=== PATIENT | male | born 1935 | race Two or more races ===

== ENCOUNTER 2019-02-13 12:59 | Inpatient (IN) | payer MEDICARE ==
[~2019-02-13] VITALS: Ht 167.6 cm; Wt 83.9 kg
[~2019-02-13 12:59] MED LIST: APIX5TAB PO; ATOR10TA PO; BISA10SU8 RC; DILT-8 PO; DONE10TA11 PO; ESOM40CA PO; LACT1CAP57 PO; LEVO500T2 PO; LIDO30AD10 TD; LISI10TA5 PO; LORA0.5T PO; MAGN400O6 PO; MEMA10TA PO; MEMA1CAP2 PO; NA P133E RC; NAPR-1009 PO; PANT40TA2 PO; PARO20TA7 PO; PAXIL PO; QUET100T PO; ROSU5TAB PO
[2019-02-13] MEDS ORDERED: CHOL10002 PO (13:26)
[2019-02-13 13:43] LABS: BASOPHILS % (AUTO) 0.7 % (0.0-2.0); EOSINOPHILS # (AUTO) 0.6 K/uL (0.0-0.7); EOSINOPHILS % (AUTO) 8.8 % (0.0-7.0); HEMATOCRIT 45.8 % (36.7-47.1); HEMOGLOBIN 15.3 g/dL (12.5-16.3); LYMPHOCYTES # (AUTO) 1.5 K/uL (20.0-40.0); LYMPHOCYTES % (AUTO) 24.2 % (20.5-51.5); MEAN CORPUSCULAR HEMOGLOBIN 30.9 uug (23.8-33.4); MEAN CORPUSCULAR HGB CONC 34 g/dL (32.5-36.3); MEAN CORPUSCULAR VOLUME 92.3 fL (73.0-96.2); MONOCYTES # (AUTO) 0.5 K/uL (2.0-10.0); MONOCYTES % (AUTO) 8.1 % (0.0-11.0); NEUTROPHILS # (AUTO) 3.7 K/uL (1.8-8.9); NEUTROPHILS % (AUTO) 58.2 % (38.5-71.5); PLATELET COUNT (AUTO) 142 K/uL (152-348); RED BLOOD CELL COUNT(AUTO) 4.97 MIL/uL (4.06-5.63); WHITE BLOOD COUNT (AUTO) 6.3 K/uL (3.6-10.2)
[2019-02-13 13:49] LABS: *BILIRUBIN,URIN NEGATIVE (NEGATIVE); *CLARITY,URINE CLEAR (CLEAR); *COLOR,URINE YELLOW (YELLOW); *KETONES,URINE NEGATIVE (NEGATIVE); *UROBILINOGEN,URINE 0.2 E.U./dl (NORMAL); LEUKOCYTE ESTERASE ,URINE 1+ (NEGATIVE); NITRITE, URINE POSITIVE (NEGATIVE); PH,URINE 5.5 (5.0-8.0); UGLUCOSE NEGATIVE (NEGATIVE)
[2019-02-13 13:50] LABS: *BLOOD, URINE TRACE (NEGATIVE)
[2019-02-13 13:51] LABS: CARBON DIOXIDE 25 mmol/L (21-32); CHLORIDE 106 mmol/L (98-107); CREATININE 1.1 mg/dL (0.6-1.3); GLUCOSE 138 mg/dL (74-106); POTASSIUM 4.4 mmol/L (3.5-5.1); UREA NITROGEN, BLOOD 20 mg/dL (7-18)
[2019-02-13 13:58] LABS: BACTERIA,URINE MODERATE /HPF (NONE SEEN); RBC,URINE 0-3 /HPF (0-3); SQUAMOUS EPITHELIAL CELL,UR FEW /HPF (NONE SEEN)
[2019-02-13 14:03] LABS: ALANINE AMINOTRANSFERASE 19 U/L (16-63); ALKALINE PHOSPHATASE 92 U/L (50-136); ASPARTATE AMINOTRANSFERASE 13 U/L (15-37); BILIRUBIN,DIRECT 0.1 mg/dL (0.0-0.2); BILIRUBIN,TOTAL 0.4 mg/dL (0.2-1.0); TOTAL PROTEIN, SERUM 6.9 g/dL (6.4-8.2)
[2019-02-13 17:23] VITALS: BP 157/87
[2019-02-13 19:31] VITALS: BP 153/91
[2019-02-13] MEDS ORDERED: NAPROXEN 500 MG TABLET PO PRN (20:00)
[2019-02-13] MEDS ORDERED: FLEET ENEMA 133 ML BOTTLE RC PRN (20:00)
[2019-02-13] MEDS ORDERED: MAGNESIUM HYDROXIDE 30 ML LIQUID UDC PO PRN (20:00)
[2019-02-13] MEDS ORDERED: MORPHINE SULFATE 2 MG/1 ML DISP.SYRIN IV PRN (20:00)
[2019-02-13] MEDS ORDERED: ACETAMINOPHEN 325 MG TABLET PO PRN (20:00)
[2019-02-13] MEDS ORDERED: BISACODYL 10 MG SUPP.RECT RC PRN (20:00)
[2019-02-13] MEDS: CEFTRIAXONE 1 G in IV DEXTROSE 5% 50 ML IV SCH (21:30)
[2019-02-13] MEDS: CULTURELLE CAPSULE PO SCH (21:31)
[2019-02-13] MEDS: ATORVASTATIN 10 MG TABLET PO SCH (21:31)
[2019-02-13] MEDS: QUETIAPINE FUMARATE 100 MG TABLET PO SCH (21:31)
[2019-02-13 23:44] VITALS: BP 118/76
[2019-02-14 03:28] VITALS: BP 126/78
[2019-02-14] MEDS: PANTOPRAZOLE SODIUM 40 MG TABLET.DR PO SCH (05:59)
[2019-02-14 06:46] LABS: THYROID STIMULATING HORMONE 0.238 mIU/mL (0.358-3.740)
[2019-02-14 07:02] LABS: ALANINE AMINOTRANSFERASE 20 U/L (16-63); ALKALINE PHOSPHATASE 89 U/L (50-136); ASPARTATE AMINOTRANSFERASE 13 U/L (15-37); BILIRUBIN,TOTAL 0.5 mg/dL (0.2-1.0); CARBON DIOXIDE 24 mmol/L (21-32); CHLORIDE 106 mmol/L (98-107); CHOLESTEROL 111 mg/dL (<200); CREATININE 1.1 mg/dL (0.6-1.3); GLUCOSE 86 mg/dL (74-106); HDL CHOLESTEROL 30 mg/dL (40-60); POTASSIUM 4.1 mmol/L (3.5-5.1); TRIGLYCERIDES 125 MG/DL (30-150); UREA NITROGEN, BLOOD 21 mg/dL (7-18)
[2019-02-14 07:03] LABS: EOSINOPHILS # (AUTO) 0.5 K/uL (0.0-0.7); LYMPHOCYTES # (AUTO) 1.5 K/uL (20.0-40.0)
[2019-02-14 07:15] LABS: BASOPHILS # (AUTO) 0.1 K/uL (0.0-8.0); BASOPHILS % (AUTO) 0.8 % (0.0-2.0); EOSINOPHILS % (AUTO) 5.8 % (0.0-7.0); HEMATOCRIT 46.2 % (36.7-47.1); HEMOGLOBIN 15.4 g/dL (12.5-16.3); LYMPHOCYTES % (AUTO) 18.2 % (20.5-51.5); MEAN CORPUSCULAR HEMOGLOBIN 30.9 uug (23.8-33.4); MEAN CORPUSCULAR HGB CONC 33 g/dL (32.5-36.3); MEAN CORPUSCULAR VOLUME 92.4 fL (73.0-96.2); MONOCYTES # (AUTO) 0.8 K/uL (2.0-10.0); MONOCYTES % (AUTO) 9.8 % (0.0-11.0); NEUTROPHILS # (AUTO) 5.3 K/uL (1.8-8.9); NEUTROPHILS % (AUTO) 65.4 % (38.5-71.5); PLATELET COUNT (AUTO) 146 K/uL (152-348)
[2019-02-14 07:18] LABS: WHITE BLOOD COUNT (AUTO) 8.1 K/uL (3.6-10.2)
[2019-02-14] MEDS: LORAZEPAM 0.5 MG TABLET PO SCH ×2 (08:42→16:33)
[2019-02-14] MEDS: CHOLECALCIFEROL 1,000 UNIT TABLET PO SCH (08:42)
[2019-02-14] MEDS: FUROSEMIDE 20 MG/2 ML VIAL IV SCH (08:42)
[2019-02-14] MEDS: DILTIAZEM HCL CD 120 MG CAP.SR.24H PO SCH (08:44)
[2019-02-14] MEDS: LISINOPRIL 10 MG TABLET PO SCH (08:44)
[2019-02-14] MEDS: CULTURELLE CAPSULE PO SCH ×2 (08:44→21:05)
[2019-02-14] MEDS: PAROXETINE HCL 20 MG TABLET PO SCH (08:44)
[2019-02-14] MEDS: APIXABAN 5 MG TABLET PO SCH ×2 (08:47→17:25)
[2019-02-14] MEDS ORDERED: Medication Not On Formulary EA (Memantine HCl/Donepezil HCl (Namzaric 14 mg-10 mg Capsul PO SCH (09:00)
[2019-02-14 11:40] VITALS: BP 109/82
[2019-02-14 15:26] VITALS: BP 103/63
[2019-02-14 19:58] VITALS: BP 107/65
[2019-02-14] MEDS: ATORVASTATIN 10 MG TABLET PO SCH (21:05)
[2019-02-14] MEDS: CEFTRIAXONE 1 G in IV DEXTROSE 5% 50 ML IV SCH (21:05)
[2019-02-14] MEDS: MEMANTINE HCL 10 MG TABLET PO SCH (21:06)
[2019-02-14] MEDS: DONEPEZIL 10 MG TABLET PO SCH (21:06)
[2019-02-14] MEDS: QUETIAPINE FUMARATE 100 MG TABLET PO SCH (21:06)
[2019-02-15 01:17] VITALS: BP 94/62
[2019-02-15 05:06] VITALS: BP 103/50
[2019-02-15 05:57] LABS: BASOPHILS % (AUTO) 0.7 % (0.0-2.0); EOSINOPHILS # (AUTO) 0.4 K/uL (0.0-0.7); EOSINOPHILS % (AUTO) 5.3 % (0.0-7.0); HEMATOCRIT 45.1 % (36.7-47.1); HEMOGLOBIN 15.3 g/dL (12.5-16.3); LYMPHOCYTES # (AUTO) 1.9 K/uL (20.0-40.0); MEAN CORPUSCULAR HEMOGLOBIN 31.4 uug (23.8-33.4); MEAN CORPUSCULAR HGB CONC 34 g/dL (32.5-36.3); MEAN CORPUSCULAR VOLUME 92.3 fL (73.0-96.2); MONOCYTES # (AUTO) 0.6 K/uL (2.0-10.0); MONOCYTES % (AUTO) 8.1 % (0.0-11.0); NEUTROPHILS # (AUTO) 4.1 K/uL (1.8-8.9); NEUTROPHILS % (AUTO) 58.9 % (38.5-71.5); PLATELET COUNT (AUTO) 142 K/uL (152-348); RED BLOOD CELL COUNT(AUTO) 4.88 MIL/uL (4.06-5.63)
[2019-02-15 06:12] LABS: ALANINE AMINOTRANSFERASE 19 U/L (16-63); ALKALINE PHOSPHATASE 90 U/L (50-136); ASPARTATE AMINOTRANSFERASE 12 U/L (15-37); BILIRUBIN,TOTAL 0.5 mg/dL (0.2-1.0); CARBON DIOXIDE 28 mmol/L (21-32); CHLORIDE 103 mmol/L (98-107); CREATININE 1.4 mg/dL (0.6-1.3); GLUCOSE 105 mg/dL (74-106); MAGNESIUM 2.1 mg/dL (1.8-2.4); PHOSPHOROUS 3.2 mg/dL (2.5-4.9); POTASSIUM 3.9 mmol/L (3.5-5.1); TOTAL PROTEIN, SERUM 6.6 g/dL (6.4-8.2); UREA NITROGEN, BLOOD 25 mg/dL (7-18)
[2019-02-15] MEDS: PANTOPRAZOLE SODIUM 40 MG TABLET.DR PO SCH (06:41)
[2019-02-15] MEDS: PAROXETINE HCL 20 MG TABLET PO SCH (08:40)
[2019-02-15] MEDS: LORAZEPAM 0.5 MG TABLET PO SCH ×2 (08:41→16:48)
[2019-02-15] MEDS: CHOLECALCIFEROL 1,000 UNIT TABLET PO SCH (08:41)
[2019-02-15] MEDS: DONEPEZIL 10 MG TABLET PO SCH ×2 (08:41→21:14)
[2019-02-15] MEDS: MEMANTINE HCL 10 MG TABLET PO SCH ×2 (08:41→20:54)
[2019-02-15] MEDS: CULTURELLE CAPSULE PO SCH ×2 (08:41→20:55)
[2019-02-15] MEDS: APIXABAN 5 MG TABLET PO SCH ×2 (08:43→16:49)
[2019-02-15] MEDS: DILTIAZEM HCL CD 120 MG CAP.SR.24H PO SCH (08:44)
[2019-02-15] MEDS: LISINOPRIL 10 MG TABLET PO SCH (08:45)
[2019-02-15] MEDS: FUROSEMIDE 20 MG/2 ML VIAL IV SCH (08:45)
[2019-02-15 12:17] VITALS: BP 121/69
[2019-02-15 15:20] VITALS: BP 100/62
[2019-02-15] MEDS: CEphaleXIN 500 MG CAPSULE PO SCH ×2 (16:54→20:55)
[2019-02-15 20:27] VITALS: BP 116/69
[2019-02-15] MEDS: QUETIAPINE FUMARATE 100 MG TABLET PO SCH (20:55)
[2019-02-15] MEDS: ATORVASTATIN 10 MG TABLET PO SCH (20:55)
[2019-02-16 05:06] VITALS: BP 107/58
[2019-02-16] MEDS: PANTOPRAZOLE SODIUM 40 MG TABLET.DR PO SCH (06:09)
[2019-02-16 06:55] LABS: BASOPHILS % (AUTO) 0.3 % (0.0-2.0); EOSINOPHILS # (AUTO) 0.4 K/uL (0.0-0.7); EOSINOPHILS % (AUTO) 5.5 % (0.0-7.0); HEMATOCRIT 44.8 % (36.7-47.1); MEAN CORPUSCULAR HEMOGLOBIN 31.1 uug (23.8-33.4); MEAN CORPUSCULAR HGB CONC 33 g/dL (32.5-36.3); MEAN CORPUSCULAR VOLUME 93.1 fL (73.0-96.2); MONOCYTES # (AUTO) 0.5 K/uL (2.0-10.0); MONOCYTES % (AUTO) 7.3 % (0.0-11.0); NEUTROPHILS # (AUTO) 4.5 K/uL (1.8-8.9); NEUTROPHILS % (AUTO) 59.9 % (38.5-71.5); PLATELET COUNT (AUTO) 139 K/uL (152-348); RED BLOOD CELL COUNT(AUTO) 4.82 MIL/uL (4.06-5.63); WHITE BLOOD COUNT (AUTO) 7.5 K/uL (3.6-10.2)
[2019-02-16 07:02] LABS: CARBON DIOXIDE 28 mmol/L (21-32); CHLORIDE 104 mmol/L (98-107); CREATININE 1.3 mg/dL (0.6-1.3); GLUCOSE 92 mg/dL (74-106); PHOSPHOROUS 2.6 mg/dL (2.5-4.9); POTASSIUM 4.1 mmol/L (3.5-5.1); UREA NITROGEN, BLOOD 26 mg/dL (7-18)
[2019-02-16 08:00] VITALS: BP 122/72
[2019-02-16] MEDS: CEphaleXIN 500 MG CAPSULE PO SCH (09:54)
[2019-02-16] MEDS: CHOLECALCIFEROL 1,000 UNIT TABLET PO SCH (09:54)
[2019-02-16] MEDS: MEMANTINE HCL 10 MG TABLET PO SCH (09:54)
[2019-02-16] MEDS: LISINOPRIL 10 MG TABLET PO SCH (09:54)
[2019-02-16] MEDS: DONEPEZIL 10 MG TABLET PO SCH (09:54)
[2019-02-16] MEDS: PAROXETINE HCL 20 MG TABLET PO SCH (09:54)
[2019-02-16] MEDS: LORAZEPAM 0.5 MG TABLET PO SCH (09:54)
[2019-02-16] MEDS: CULTURELLE CAPSULE PO SCH (09:54)
[2019-02-16] MEDS: DILTIAZEM HCL CD 120 MG CAP.SR.24H PO SCH (09:56)
[2019-02-16] MEDS: APIXABAN 5 MG TABLET PO SCH (09:59)
[2019-02-16] MEDS: FUROSEMIDE 20 MG/2 ML VIAL IV SCH (09:59)
[2019-02-16 11:14] VITALS: BP 142/78
[2019-02-16] MEDS ORDERED: CEPH500C2 PO (12:23)
[2019-02-16] MEDS ORDERED: ACET325T53 PO (12:23)
[2019-02-16 18:09] VITALS: BP 117/63
== END 2019-02-16 17:30 | DRG 871 ==
LOC: ER 12:59 → TELE3 16:25 → MEDSURG3 02-15 14:34
PROVIDERS: ADMIT Internal Medicine; ATTEND Internal Medicine
DX: A41.9 Sepsis, unspecified organism (principal); N17.0 Acute kidney failure with tubular necrosis; N39.0 Urinary tract infection, site not specified; E87.2 Acidosis; D68.59 Other primary thrombophilia; G93.40 Encephalopathy, unspecified; B96.1 Klebsiella pneumoniae [K. pneumoniae] as the cause of diseases classified elsewhere; E05.10 Thyrotoxicosis with toxic single thyroid nodule without thyrotoxic crisis or storm; D69.6 Thrombocytopenia, unspecified; F01.50 Vascular dementia, unspecified severity, without behavioral disturbance, psychotic disturbance, mood disturbance, and anxiety; I11.9 Hypertensive heart disease without heart failure; I48.2 Chronic atrial fibrillation; I25.2 Old myocardial infarction; I35.1 Nonrheumatic aortic (valve) insufficiency; F41.9 Anxiety disorder, unspecified; E78.5 Hyperlipidemia, unspecified; Z74.09 Other reduced mobility; Z79.899 Other long term (current) drug therapy; Z87.891 Personal history of nicotine dependence; Z79.01 Long term (current) use of anticoagulants; R62.7 Adult failure to thrive; K21.9 Gastro-esophageal reflux disease without esophagitis
CPT/HCPCS: 36415; 70030-TC; 71045; 83605; 83735; 84100; 84153; 84443; 85025; 85730; 87040; 87077; 87086; 93005; 93307; A4663; G0378; J0696; J1940; J3490; J7060

== ENCOUNTER 2020-01-20 17:28 | Inpatient (IN) | payer MEDICARE ==
[~2020-01-20] VITALS: Ht 167.6 cm; Wt 90.7 kg
[~2020-01-20 17:28] MED LIST changes: +ACET325T53 PO; -ATOR10TA PO; +BISA10SU11 RC; -BISA10SU8 RC; +CEPH500C2 PO; +CHOL10002 PO; +DILT-2 PO; -DILT-8 PO; -DONE10TA11 PO; -ESOM40CA PO; -LEVO500T2 PO; -LIDO30AD10 TD; -MEMA10TA PO; -NAPR-1009 PO; -PAXIL PO; -ROSU5TAB PO
--- NOTE | 2020-01-20 17:28 | NUR ---
pt bib private ambulance from [facility], to be evaluated for fever, cough and diarhea.pt placed in room3 and monitor following hospital covid guidlines. pt speaking azeri only. pt deneis any pain pain at this time. no sign of distress. pt came o2 via nc 3 litre satting 97%. no work of breathing. pt came with diaper soaked with urine. harish scratch davis on the LE.
[2020-01-20 17:54] LABS: BASOPHILS % (AUTO) 0.8 % (0.0-2.0); EOSINOPHILS # (AUTO) 0.2 K/uL (0.0-0.7); EOSINOPHILS % (AUTO) 3.4 % (0.0-7.0); HEMATOCRIT 47.3 % (36.7-47.1); HEMOGLOBIN 16.1 g/dL (12.5-16.3); LYMPHOCYTES # (AUTO) 1.4 K/uL (20.0-40.0); LYMPHOCYTES % (AUTO) 21.7 % (20.5-51.5); MEAN CORPUSCULAR HGB CONC 34 g/dL (32.5-36.3); MEAN CORPUSCULAR VOLUME 90.8 fL (73.0-96.2); MONOCYTES # (AUTO) 0.6 K/uL (2.0-10.0); MONOCYTES % (AUTO) 10.1 % (0.0-11.0); PLATELET COUNT (AUTO) 149 K/uL (152-348); WHITE BLOOD COUNT (AUTO) 6.3 K/uL (3.6-10.2)
--- NOTE | 2020-01-20 18:00 | NUR ---
placed folley cath #16, with minimal resistance.pt tolerated well. bloody output of 40 ml. notified.
[2020-01-20 18:02] LABS: CREATININE 1.2 mg/dL (0.6-1.3); POTASSIUM 4.5 mmol/L (3.5-5.1)
[2020-01-20] MEDS ORDERED: MULT1TAB73 PO (18:06)
[2020-01-20] MEDS ORDERED: LACT1CAP89 PO (18:06)
[2020-01-20] MEDS ORDERED: METH5TAB6 PO (18:06)
[2020-01-20] MEDS ORDERED: MEMA1CAP3 PO (18:06)
[2020-01-20] MEDS ORDERED: LATA2.5D2 EACHEYE (18:06)
[2020-01-20] MEDS ORDERED: PARO10TA86 PO (18:06)
[2020-01-20] MEDS ORDERED: ASCO500C16 PO (18:06)
[2020-01-20] MEDS ORDERED: OMEP40CA13 PO (18:06)
[2020-01-20] MEDS ORDERED: GUAI118.5 PO (18:06)
[2020-01-20 18:19] LABS: BILIRUBIN,TOTAL 0.4 mg/dL (0.2-1.0); TOTAL PROTEIN, SERUM 7.4 g/dL (6.4-8.2)
[2020-01-20] MEDS ORDERED: levoFLOXacin 750MG/D5W 150 ML IV ONE ×2 (18:43→18:45)
[2020-01-20] MEDS ORDERED: PIPERACILLIN/TAZOBACTAM/D5W 50 ML IV ONE (18:43)
[2020-01-20] MEDS ORDERED: IV NORMAL SALINE 500 ML BAG IV ONE (18:45)
[2020-01-20] MEDS ORDERED: PIPERACILLIN SODIUM/TAZOBACTAM 3.375 G in IV DEXTROSE 5% 50 ML IV ONE (18:45)
[2020-01-20] MEDS ORDERED: GUAIFENESIN/DEXTROMETHORPHAN 5 ML UDC PO PRN (19:00)
[2020-01-20] MEDS ORDERED: ACETAMINOPHEN 325 MG TABLET PO PRN ×2 (19:00)
[2020-01-20] MEDS ORDERED: MAGNESIUM HYDROXIDE 30 ML LIQUID UDC PO PRN (19:00)
[2020-01-20] MEDS ORDERED: FLEET ENEMA 133 ML BOTTLE RC PRN (19:00)
--- NOTE | 2020-01-20 19:46 | NUR ---
Pt. admitted to [facility] , under care of Dr. Pappas Belongs List completed. Report given to LACEY Haro.
--- NOTE | 2020-01-20 19:50 | NUR ---
Levaquin infusion not completed at this time, Floor nurse to complete infusion.
[2020-01-20 20:12] VITALS: BP 109/86
--- NOTE | 2020-01-20 20:15 | NUR ---
Admitted an 84 y.o male patient from ER via gay DX: Sepsis, r/o COVID-19. To CCU3. Patient AAO, speaks and understands Croatian only. Noted gross hematuria from Sifuentes catheter. Assessment completed. Admission data obtained from ER records. With hx: Dementia. Addendum: 01/21/20 at 0138 by BERENICE LEE RN Amended: Links added. Addendum: 01/21/20 at 0140 by BERENICE LEE RN Amended: Links added. Addendum: 01/21/20 at 0142 by BERENICE LEE RN Amended: Links added. Addendum: 01/21/20 at 0142 by BERENICE LEE RN Amended: Links added. Addendum: 01/21/20 at 0142 by BERENICE LEE RN Amended: Links added. Addendum: 01/21/20 at 0142 by BERENICE LEE RN Amended: Links added. Addendum: 01/21/20 at 0143 by BERENICE LEE RN Amended: Links added. Addendum: 01/21/20 at 0143 by BERENICE LEE RN Amended: Links added.
[2020-01-20 20:30] VITALS: BP 104/88
[2020-01-20] MEDS: IV NS 1000 ML 1,000 ML IV PRN (20:43)
[2020-01-20 21:00] VITALS: BP 119/78
[2020-01-20] MEDS ORDERED: QUETIAPINE FUMARATE 25 MG TABLET PO SCH (21:00)
[2020-01-20] MEDS ORDERED: QUETIAPINE FUMARATE 100 MG TABLET PO SCH (21:00)
--- NOTE | 2020-01-20 21:06 | NUR ---
Dr. Mian fernandez re: hematuria; awaiting call back. Addendum: 01/21/20 at 0140 by BERENICE LEE RN Amended: Links added. Addendum: 01/21/20 at 0142 by BERENICE LEE RN Amended: Links added. Addendum: 01/21/20 at 0142 by BERENICE LEE RN Amended: Links added. Addendum: 01/21/20 at 0142 by BERENICE LEE RN Amended: Links added. Addendum: 01/21/20 at 0142 by BERENICE LEE RN Amended: Links added. Addendum: 01/21/20 at 0143 by BERENICE LEE RN Amended: Links added. Addendum: 01/21/20 at 0143 by BERENICE LEE RN Amended: Links added.
--- NOTE | 2020-01-20 21:45 | NUR ---
Dr. Pappas called back; informed of hematuria. Order received. Sifuentes catheter irrigated gently and aseptically with Sterile water. Clots obtained. Patient grimacing during irrigation.
[2020-01-20 22:00] VITALS: BP 108/58
[2020-01-20] MEDS ORDERED: PIPERACILLIN SODIUM/TAZOBACTAM 3.375 G in IV DEXTROSE 5% 50 ML IV SCH (22:00)
--- NOTE | 2020-01-20 22:00 | NUR ---
Abdomen slightly distended and firm; with bowel sounds.
[2020-01-20 23:00] VITALS: BP 104/66
[2020-01-21] VITALS (15 sets, daily range): BP systolic 104–130; BP diastolic 58–89
--- NOTE | 2020-01-21 | NUR ---
Patient mildly restless; trying to get out of bed. Rachel VALLE here to interpret and advised patient. Sifuentes catheter irrigated again; clots obtained. Patient felt better afterwards.
[2020-01-21] MEDS: PIPERACILLIN/TAZOBACTAM/D5W 3.375 G in PREMIXED 1 EACH IV SCH ×2 (02:43→11:27)
[2020-01-21] MEDS: MORPHINE SULFATE 2 MG/1 ML DISP.SYRIN IV PRN ×3 (04:26→19:26)
[2020-01-21 05:40] LABS: BASOPHILS % (AUTO) 0.4 % (0.0-2.0); EOSINOPHILS # (AUTO) 0.1 K/uL (0.0-0.7); EOSINOPHILS % (AUTO) 1.6 % (0.0-7.0); HEMATOCRIT 43.2 % (36.7-47.1); HEMOGLOBIN 14.8 g/dL (12.5-16.3); LYMPHOCYTES # (AUTO) 0.9 K/uL (20.0-40.0); LYMPHOCYTES % (AUTO) 12.4 % (20.5-51.5); MEAN CORPUSCULAR HEMOGLOBIN 31.3 uug (23.8-33.4); MEAN CORPUSCULAR HGB CONC 34 g/dL (32.5-36.3); MEAN CORPUSCULAR VOLUME 91.4 fL (73.0-96.2); MONOCYTES # (AUTO) 0.6 K/uL (2.0-10.0); MONOCYTES % (AUTO) 8.4 % (0.0-11.0); NEUTROPHILS # (AUTO) 5.7 K/uL (1.8-8.9); NEUTROPHILS % (AUTO) 77.2 % (38.5-71.5); PLATELET COUNT (AUTO) 143 K/uL (152-348); RED BLOOD CELL COUNT(AUTO) 4.73 MIL/uL (4.06-5.63); WHITE BLOOD COUNT (AUTO) 7.4 K/uL (3.6-10.2)
[2020-01-21 06:10] LABS: ALANINE AMINOTRANSFERASE 45 U/L (16-63); ALKALINE PHOSPHATASE 106 U/L (50-136); ASPARTATE AMINOTRANSFERASE 30 U/L (15-37); BILIRUBIN,TOTAL 0.8 mg/dL (0.2-1.0); CARBON DIOXIDE 25 mmol/L (21-32); CHLORIDE 103 mmol/L (98-107); CHOLESTEROL 152 mg/dL (<200); GLUCOSE 144 mg/dL (74-106); HDL CHOLESTEROL 27 mg/dL (40-60); MAGNESIUM 1.8 mg/dL (1.8-2.4); TOTAL PROTEIN, SERUM 6.6 g/dL (6.4-8.2); TRIGLYCERIDES 141 MG/DL (30-150); UREA NITROGEN, BLOOD 24 mg/dL (7-18)
[2020-01-21 06:13] LABS: THYROID STIMULATING HORMONE 1.595 mIU/mL (0.358-3.740)
[2020-01-21] MEDS: PANTOPRAZOLE SODIUM 40 MG TABLET.DR PO SCH (06:15)
[2020-01-21 06:36] LABS: CREATININE 1.6 mg/dL (0.6-1.3)
[2020-01-21 06:52] LABS: IRON, SERUM 113 ug/dL (50-175)
--- NOTE | 2020-01-21 07:03 | NUR ---
No neuro changes. Afebrile all night. Remains in Afib rate in the 's. Sifuentes catheter irrigated PRN. Still with hematuria. Addendum: 01/21/20 at 0703 by BERENICE LEE RN Amended: Links added.
[2020-01-21] MEDS ORDERED: Z GUARD REMEDY PASTE 57 GM TUBE TOP PRN (07:45)
[2020-01-21] MEDS ORDERED: Medication Not On Formulary EA (Multivitamins (Multivitamin) 1 TAB) PO SCH (09:00)
[2020-01-21] MEDS ORDERED: PAROXETINE HCL 10 MG TABLET PO SCH (09:00)
[2020-01-21] MEDS ORDERED: Medication Not On Formulary EA (Ascorbic Acid (Vitamin C CAPSULE) 500 MG) PO SCH (09:00)
[2020-01-21] MEDS ORDERED: LACTOBACILLUS ACIDOPHILUS E PO SCH (09:00)
[2020-01-21] MEDS ORDERED: APIXABAN 5 MG TABLET PO SCH ×3 (09:00→17:00)
[2020-01-21] MEDS: DILTIAZEM HCL CD 120 MG CAP.SR.24H PO SCH (09:04)
[2020-01-21] MEDS: ACIDOPHILUS/BULGARICUS CHEW TAB PO SCH (09:05)
[2020-01-21] MEDS: MULTIVITAMINS,THERAPEUTIC TABLET PO SCH (09:05)
[2020-01-21] MEDS: METHIMAZOLE 5 MG TABLET PO SCH (09:05)
[2020-01-21] MEDS: CHOLECALCIFEROL 1,000 UNIT TABLET PO SCH (09:06)
[2020-01-21] MEDS: Z GUARD REMEDY PASTE 57 GM TUBE TOP SCH ×2 (09:06→23:16)
[2020-01-21] MEDS: ASCORBIC ACID 500 MG TABLET PO SCH (09:06)
[2020-01-21] MEDS: IV NS 1000 ML 1,000 ML IV PRN (11:25)
[2020-01-21] MEDS ORDERED: HYDROXYCHLOROQUINE SULFATE 200 MG TABLET PO ONE ×2 (13:00→22:00)
[2020-01-21] MEDS ORDERED: LORAZEPAM 2 MG/1 ML VIAL IV PRN (13:15)
[2020-01-21] MEDS ORDERED: AZITHROMYCIN IV 500 MG in IV DEXTROSE 5% 250 ML IV SCH (14:00)
[2020-01-21] MEDS: PIPERACILLIN SODIUM/TAZOBACTAM 3.375 G in IV DEXTROSE 5% 50 ML IV SCH (19:26)
--- NOTE | 2020-01-21 20:00 | NUR ---
Patient received into care laying in bed, resting comfortably. Patient is alert/oriented x1 and has no s/s of acute distress/discomfort noted/observed by nurse. Patient is running IV NS via left wrist IV cath. Patient is noted to have may cath with blood visible in tubing and bag. All safety, fall, and isolation precautions are in place. Call light and personal items are within reach at all times. Will continue to monitor and assess.
[2020-01-21] MEDS: LATANOPROST OPHT DROP 2.5 ML BOTTLE EACHEYE SCH (23:01)
[2020-01-21] MEDS ORDERED: HYDROXYCHLOROQUINE SULFATE 200 MG TABLET ONE ×2 (23:24→23:27)
[2020-01-22 00:06] VITALS: BP 119/68
[2020-01-22] MEDS: IV NS 1000 ML 1,000 ML IV PRN ×2 (00:16→16:01)
[2020-01-22] MEDS: PIPERACILLIN SODIUM/TAZOBACTAM 3.375 G in IV DEXTROSE 5% 50 ML IV SCH ×3 (02:44→16:26)
[2020-01-22 04:06] VITALS: BP 112/71
[2020-01-22] MEDS: PANTOPRAZOLE SODIUM 40 MG TABLET.DR PO SCH (06:13)
--- NOTE | 2020-01-22 07:01 | NUR ---
PATIENT SLEPT INTERMITTENTLY THROUGHOUT NIGHT WITH NO S/S OF ACUTE DISTRESS/DISCOMFORT NOTED/OBSERVED BY NURSE. ALL NURSING NEEDS WERE MET AND PATIENT IS WARM, DRY, AND COMFORTABLE. ALL SAFETY, FALL, AND ISOLATION PRECAUTIONS REMAIN IN PLACE. CALL LIGHT AND PERSONAL ITEMS REMAIN WITHIN REACH AT ALL TIMES.
[2020-01-22 07:38] LABS: BASOPHILS % (AUTO) 0.3 % (0.0-2.0); EOSINOPHILS # (AUTO) 0.3 K/uL (0.0-0.7); EOSINOPHILS % (AUTO) 3.3 % (0.0-7.0); HEMATOCRIT 36.7 % (36.7-47.1); HEMOGLOBIN 12.4 g/dL (12.5-16.3); MEAN CORPUSCULAR HGB CONC 34 g/dL (32.5-36.3); MEAN CORPUSCULAR VOLUME 91.9 fL (73.0-96.2); MONOCYTES # (AUTO) 0.8 K/uL (2.0-10.0); MONOCYTES % (AUTO) 8.8 % (0.0-11.0); NEUTROPHILS # (AUTO) 6.6 K/uL (1.8-8.9); NEUTROPHILS % (AUTO) 76.6 % (38.5-71.5); PLATELET COUNT (AUTO) 136 K/uL (152-348); RED BLOOD CELL COUNT(AUTO) 3.99 MIL/uL (4.06-5.63); WHITE BLOOD COUNT (AUTO) 8.6 K/uL (3.6-10.2)
[2020-01-22 07:43] LABS: CARBON DIOXIDE 27 mmol/L (21-32); CHLORIDE 105 mmol/L (98-107); CREATININE 2.3 mg/dL (0.6-1.3); GLUCOSE 136 mg/dL (74-106); PHOSPHOROUS 2.9 mg/dL (2.5-4.9); POTASSIUM 4.5 mmol/L (3.5-5.1); UREA NITROGEN, BLOOD 29 mg/dL (7-18)
--- NOTE | 2020-01-22 08:00 | NUR ---
Receive patient in bed, awake and verbally responsive .No signs of distress noted saturating 97% on Oxygen at 2L. No complain of pain or discomfort Afebrile. On contact and droplet Isolation for positive covid 19. Proper PPE strictly observed. Kept clean and comfortable. Will continue to monitor.
[2020-01-22 08:03] LABS: ABG BASE EXCESS -3.6 mmol/L; ABG HCO3 20.8 mmol/L; ABG PCO2 35.5 mmHg (35.0-45.0); ABG PH 7.385 (7.350-7.450); ABG PO2 93.3 mmHg (75.0-100.0); ABG SITE RIGHT RADIAL; ABG TOTAL HEMOGLOBIN 13.1 G/dL (13.5-18.0); COHb 1.4 % (0.5-1.5); MetHb 0.3 % (0.0-1.5); O2Hb 96.2 % (94.0-97.0); VENT MODE Nasal Cannula
[2020-01-22] MEDS: ACIDOPHILUS/BULGARICUS CHEW TAB PO SCH (09:21)
[2020-01-22] MEDS: ASCORBIC ACID 500 MG TABLET PO SCH (09:21)
[2020-01-22] MEDS: HYDROXYCHLOROQUINE SULFATE 200 MG TABLET PO SCH ×2 (09:21→21:10)
[2020-01-22] MEDS: CHOLECALCIFEROL 1,000 UNIT TABLET PO SCH (09:21)
[2020-01-22] MEDS: Z GUARD REMEDY PASTE 57 GM TUBE TOP SCH ×2 (09:22→21:10)
[2020-01-22] MEDS: MULTIVITAMINS,THERAPEUTIC TABLET PO SCH (09:26)
[2020-01-22] MEDS: METHIMAZOLE 5 MG TABLET PO SCH (09:26)
[2020-01-22] MEDS: DILTIAZEM HCL CD 120 MG CAP.SR.24H PO SCH (09:50)
[2020-01-22 12:00] VITALS: BP 106/65
[2020-01-22 16:00] VITALS: BP 113/67
--- NOTE | 2020-01-22 18:30 | NUR ---
Patient in bed, awake and verbally responsive .No signs of distress noted saturating 97% on Oxygen at 2L. No complain of pain or discomfort Afebrile. On contact and droplet Isolation for positive covid 19. Proper PPE strictly observed. Kept clean and comfortable. Sifuentes catheter draining with bright red Urine with clots. with Output of 1000cc. All needs attended. Kept clean and comfortable. Will endorse to Oncoming Nurse.
[2020-01-22 20:06] VITALS: BP 115/68
[2020-01-22] MEDS: LATANOPROST OPHT DROP 2.5 ML BOTTLE EACHEYE SCH (21:10)
--- NOTE | 2020-01-22 22:33 | NUR ---
patient is agitated and confused, removes his tele box. Pulls on Sifuentes and removes O2 cannula.
--- NOTE | 2020-01-23 | NUR ---
Patient is confused, uncooperative, pulls on lines, tubes, and monitor leads. Cheryl care done, repositioned, given food and snacks. Still restless and interfering with care.
[2020-01-23 00:06] VITALS: BP 116/61
[2020-01-23] MEDS: PIPERACILLIN SODIUM/TAZOBACTAM 3.375 G in IV DEXTROSE 5% 50 ML IV SCH ×3 (00:26→17:00)
--- NOTE | 2020-01-23 01:00 | NUR ---
Ativan given for agitation. O2 saturation is above 96%, no SOB.
[2020-01-23] MEDS: IV NS 1000 ML 1,000 ML IV PRN (03:47)
[2020-01-23 04:06] VITALS: BP 116/82
--- NOTE | 2020-01-23 04:36 | NUR ---
patient is increasingly agitated, removes tele box and throws it at the wall repeatedly. Patient had 3 BMs already, monitor electrodes moved to the back.
[2020-01-23] MEDS: MORPHINE SULFATE 2 MG/1 ML DISP.SYRIN IV PRN ×2 (04:49→17:52)
[2020-01-23] MEDS: PANTOPRAZOLE SODIUM 40 MG TABLET.DR PO SCH (07:23)
--- NOTE | 2020-01-23 08:00 | NUR ---
Received patient in bed, awake and verbally responsive. No signs of distress noted. No SOB. Saturating 96% on 1L, No complain of Pain or discomfort. Afebrile with temperature of 97.5 F, Remains on contact and droplet Isolation for positive covid 19, Proper PPE strictly Observed. Sifuentes catheter intact and patent draining yellow to bright red Urine with clots, Sifuentes catheter care provided. Kept clean and comfortable. Will continue to monitor.
[2020-01-23] MEDS: MULTIVITAMINS,THERAPEUTIC TABLET PO SCH (08:29)
[2020-01-23] MEDS: HYDROXYCHLOROQUINE SULFATE 200 MG TABLET PO SCH ×2 (08:29→20:42)
[2020-01-23] MEDS: ACIDOPHILUS/BULGARICUS CHEW TAB PO SCH (08:29)
[2020-01-23] MEDS: ASCORBIC ACID 500 MG TABLET PO SCH (08:29)
[2020-01-23] MEDS: CHOLECALCIFEROL 1,000 UNIT TABLET PO SCH (08:29)
[2020-01-23] MEDS: METHIMAZOLE 5 MG TABLET PO SCH (08:32)
[2020-01-23] MEDS: DILTIAZEM HCL CD 120 MG CAP.SR.24H PO SCH (08:34)
[2020-01-23] MEDS: Z GUARD REMEDY PASTE 57 GM TUBE TOP SCH ×2 (09:06→20:43)
[2020-01-23 09:56] VITALS: BP 132/79
[2020-01-23 11:14] LABS: BASOPHILS % (AUTO) 0.5 % (0.0-2.0); EOSINOPHILS # (AUTO) 0.2 K/uL (0.0-0.7); MONOCYTES # (AUTO) 0.4 K/uL (2.0-10.0); MONOCYTES % (AUTO) 6.9 % (0.0-11.0); NEUTROPHILS # (AUTO) 4.8 K/uL (1.8-8.9)
[2020-01-23 11:19] LABS: HEMATOCRIT 34.6 % (36.7-47.1); HEMOGLOBIN 11.7 g/dL (12.5-16.3); LYMPHOCYTES % (AUTO) 15.4 % (20.5-51.5); MEAN CORPUSCULAR HEMOGLOBIN 31.1 uug (23.8-33.4); MEAN CORPUSCULAR HGB CONC 34 g/dL (32.5-36.3); MEAN CORPUSCULAR VOLUME 91.9 fL (73.0-96.2); NEUTROPHILS % (AUTO) 74.2 % (38.5-71.5); PLATELET COUNT (AUTO) 145 K/uL (152-348); RED BLOOD CELL COUNT(AUTO) 3.77 MIL/uL (4.06-5.63)
[2020-01-23 11:22] LABS: WHITE BLOOD COUNT (AUTO) 6.4 K/uL (3.6-10.2)
[2020-01-23 11:27] LABS: ALANINE AMINOTRANSFERASE 38 U/L (16-63); ALKALINE PHOSPHATASE 68 U/L (50-136); ASPARTATE AMINOTRANSFERASE 31 U/L (15-37); BILIRUBIN,TOTAL 0.5 mg/dL (0.2-1.0); CARBON DIOXIDE 24 mmol/L (21-32); CHLORIDE 110 mmol/L (98-107); CREATINE KINASE, TOTAL 177 U/L (39-308); CREATININE 1.6 mg/dL (0.6-1.3); GLUCOSE 147 mg/dL (74-106); MAGNESIUM 2.6 mg/dL (1.8-2.4); PHOSPHOROUS 2.6 mg/dL (2.5-4.9); POTASSIUM 4.3 mmol/L (3.5-5.1); UREA NITROGEN, BLOOD 24 mg/dL (7-18)
[2020-01-23 12:02] VITALS: BP 117/87
[2020-01-23 16:27] VITALS: BP 124/79
--- NOTE | 2020-01-23 18:40 | NUR ---
Patient in bed, awake and verbally responsive. No signs of distress noted. No SOB. Saturating 96% on 1L, tolerated well. Pain medication given as ordered for generalized body pain. Remains on contact and droplet Isolation for positive covid 19. Sifuentes catheter draining with Rosemarie colored urine. hematuria was noted in AM, but getting better in PM, No blood clots noted at this time. All due medications given as ordered. Will endorse to Oncoming Nurse.
[2020-01-23 19:20] VITALS: BP 107/71
[2020-01-23] MEDS: LATANOPROST OPHT DROP 2.5 ML BOTTLE EACHEYE SCH (20:42)
--- NOTE | 2020-01-23 21:00 | NUR ---
BS 76 Patient NPO . BS lantus not administered
--- NOTE | 2020-01-23 23:59 | NUR ---
PATIENT AWAKE ON BED RESTING, AFEBRILE, SINUS RHYTHM ON THE MONITOR, NO SOB . NO COUGH NOTED . DROPLET ISOLATION OBSERVED FOR POSITIVE COVID MITTENS IN PLACE THE PATIENT TRIES TO PULL OUT THE TUBES . HAGAN CATH DRAINING DARK COLORED URINE.WILL CONTINUE TO MONITOR
[2020-01-24] MEDS: IV NS 1000 ML 1,000 ML IV PRN ×2 (00:24→18:00)
[2020-01-24] MEDS: PIPERACILLIN SODIUM/TAZOBACTAM 3.375 G in IV DEXTROSE 5% 50 ML IV SCH ×3 (01:07→16:10)
[2020-01-24 01:52] VITALS: BP 112/82
[2020-01-24 06:06] VITALS: BP 124/70
[2020-01-24] MEDS: PANTOPRAZOLE SODIUM 40 MG TABLET.DR PO SCH (06:11)
--- NOTE | 2020-01-24 06:55 | NUR ---
PATIENT SLEEPING INTERMITTENTLY. NO SOB NOTED. USING O2 VIA NC @ 1LPM AFIB WITH HR 79 ON THE MONITOR . F/C DRAINING DARK COLORED URINE.CONTINUING ON DROPLET ISOLATION WILL CONTINUE TO MONITOR
[2020-01-24] MEDS: ASCORBIC ACID 500 MG TABLET PO SCH (09:20)
[2020-01-24] MEDS: MULTIVITAMINS,THERAPEUTIC TABLET PO SCH (09:20)
[2020-01-24] MEDS: METHIMAZOLE 5 MG TABLET PO SCH (09:20)
[2020-01-24] MEDS: CHOLECALCIFEROL 1,000 UNIT TABLET PO SCH (09:20)
[2020-01-24] MEDS: ACIDOPHILUS/BULGARICUS CHEW TAB PO SCH (09:20)
[2020-01-24] MEDS: HYDROXYCHLOROQUINE SULFATE 200 MG TABLET PO SCH ×2 (09:20→21:20)
[2020-01-24] MEDS: DILTIAZEM HCL CD 120 MG CAP.SR.24H PO SCH (09:21)
[2020-01-24] MEDS: Z GUARD REMEDY PASTE 57 GM TUBE TOP SCH ×2 (09:21→21:21)
[2020-01-24 09:57] VITALS: BP 126/74
--- NOTE | 2020-01-24 10:00 | NUR ---
Doctor ruby in the unit. informed that labs are not available and just did blood draw and given to veterinarian laboratory animal care. updated dr beltran
[2020-01-24 10:09] LABS: BASOPHILS # (AUTO) 0.1 K/uL (0.0-8.0); BASOPHILS % (AUTO) 1.1 % (0.0-2.0); EOSINOPHILS # (AUTO) 0.3 K/uL (0.0-0.7); EOSINOPHILS % (AUTO) 4.6 % (0.0-7.0); HEMATOCRIT 35.1 % (36.7-47.1); HEMOGLOBIN 11.8 g/dL (12.5-16.3); LYMPHOCYTES % (AUTO) 15.9 % (20.5-51.5); MEAN CORPUSCULAR HEMOGLOBIN 31.3 uug (23.8-33.4); MEAN CORPUSCULAR HGB CONC 34 g/dL (32.5-36.3); MEAN CORPUSCULAR VOLUME 93.3 fL (73.0-96.2); MONOCYTES # (AUTO) 0.5 K/uL (2.0-10.0); MONOCYTES % (AUTO) 8.7 % (0.0-11.0); NEUTROPHILS # (AUTO) 4.4 K/uL (1.8-8.9); NEUTROPHILS % (AUTO) 69.7 % (38.5-71.5); PLATELET COUNT (AUTO) 133 K/uL (152-348); RED BLOOD CELL COUNT(AUTO) 3.76 MIL/uL (4.06-5.63); WHITE BLOOD COUNT (AUTO) 6.3 K/uL (3.6-10.2)
[2020-01-24 11:03] LABS: CREATININE 1.2 mg/dL (0.6-1.3); MAGNESIUM 2.1 mg/dL (1.8-2.4); PHOSPHOROUS 2.4 mg/dL (2.5-4.9); POTASSIUM 3.9 mmol/L (3.5-5.1)
[2020-01-24] MEDS ORDERED: SODIUM PHOSPHATE MM 7.5 MMOL in IV NORMAL SALINE 100 ML IV ONE (11:15)
[2020-01-24 13:32] VITALS: BP 120/71
[2020-01-24 15:52] VITALS: BP 110/70
--- NOTE | 2020-01-24 16:00 | NUR ---
dr. rain in the unit to see patient. updated
--- NOTE | 2020-01-24 17:50 | NUR ---
Judeen in the unit to see patient updated. no fevers today.
[2020-01-24 20:00] VITALS: BP 136/73
[2020-01-24] MEDS: LATANOPROST OPHT DROP 2.5 ML BOTTLE EACHEYE SCH (21:20)
[2020-01-25] VITALS: BP 121/67
[2020-01-25] MEDS: PIPERACILLIN SODIUM/TAZOBACTAM 3.375 G in IV DEXTROSE 5% 50 ML IV SCH ×3 (00:29→16:06)
[2020-01-25 04:00] VITALS: BP 116/78
[2020-01-25] MEDS: PANTOPRAZOLE SODIUM 40 MG TABLET.DR PO SCH (06:32)
[2020-01-25 07:34] LABS: BASOPHILS % (AUTO) 0.5 % (0.0-2.0); EOSINOPHILS # (AUTO) 0.3 K/uL (0.0-0.7); EOSINOPHILS % (AUTO) 4.3 % (0.0-7.0); HEMATOCRIT 34.1 % (36.7-47.1); HEMOGLOBIN 11.6 g/dL (12.5-16.3); LYMPHOCYTES % (AUTO) 15.2 % (20.5-51.5); MEAN CORPUSCULAR HEMOGLOBIN 31.2 uug (23.8-33.4); MEAN CORPUSCULAR HGB CONC 34 g/dL (32.5-36.3); MEAN CORPUSCULAR VOLUME 91.7 fL (73.0-96.2); MONOCYTES # (AUTO) 0.7 K/uL (2.0-10.0); NEUTROPHILS # (AUTO) 4.7 K/uL (1.8-8.9); PLATELET COUNT (AUTO) 159 K/uL (152-348); RED BLOOD CELL COUNT(AUTO) 3.72 MIL/uL (4.06-5.63); WHITE BLOOD COUNT (AUTO) 6.7 K/uL (3.6-10.2)
[2020-01-25 07:37] LABS: CREATININE 1.3 mg/dL (0.6-1.3); MAGNESIUM 2.1 mg/dL (1.8-2.4); PHOSPHOROUS 2.8 mg/dL (2.5-4.9); POTASSIUM 3.9 mmol/L (3.5-5.1)
[2020-01-25] MEDS: MULTIVITAMINS,THERAPEUTIC TABLET PO SCH (08:53)
[2020-01-25] MEDS: ACIDOPHILUS/BULGARICUS CHEW TAB PO SCH (08:53)
[2020-01-25] MEDS: DILTIAZEM HCL CD 120 MG CAP.SR.24H PO SCH (08:53)
[2020-01-25] MEDS: CHOLECALCIFEROL 1,000 UNIT TABLET PO SCH (08:53)
[2020-01-25] MEDS: ASCORBIC ACID 500 MG TABLET PO SCH (08:53)
[2020-01-25] MEDS: HYDROXYCHLOROQUINE SULFATE 200 MG TABLET PO SCH ×2 (08:53→20:52)
[2020-01-25] MEDS: METHIMAZOLE 5 MG TABLET PO SCH (08:54)
[2020-01-25] MEDS: Z GUARD REMEDY PASTE 57 GM TUBE TOP SCH ×2 (09:01→20:53)
[2020-01-25] MEDS: IV NS 1000 ML 1,000 ML IV PRN (10:43)
[2020-01-25 12:00] VITALS: BP 120/73
[2020-01-25 16:00] VITALS: BP 126/72
--- NOTE | 2020-01-25 17:52 | NUR ---
Patient on droplet/contact isolation for COVID 19. Patient in bed with HOB elevated , awake and verbally responsive .No signs of distress noted and on Oxygen at 2L. No c/o pain or discomfort. Afebrile. Kept clean and comfortable. Sifuentes catheter draining with bright red Urine . patient continue on ATB, will continue to monitor.
[2020-01-25] MEDS: LATANOPROST OPHT DROP 2.5 ML BOTTLE EACHEYE SCH (20:53)
[2020-01-25 21:38] VITALS: BP 134/68
[2020-01-26] MEDS: PIPERACILLIN SODIUM/TAZOBACTAM 3.375 G in IV DEXTROSE 5% 50 ML IV SCH ×3 (00:39→16:02)
[2020-01-26] MEDS: IV NS 1000 ML 1,000 ML IV PRN (00:54)
[2020-01-26 01:01] VITALS: BP 128/83
--- NOTE | 2020-01-26 04:49 | NUR ---
Patient sleeping comfortably in bed. No acute respiratory distress noted. O2 @ 1 lpm via NC. A-fib on tele monitor with HR of 82. Sifuentes in situ and draining garth urine. On droplet isolation. Will continue to monitor.
[2020-01-26 05:19] VITALS: BP 133/87
[2020-01-26 06:52] LABS: BASOPHILS % (AUTO) 0.5 % (0.0-2.0); EOSINOPHILS # (AUTO) 0.3 K/uL (0.0-0.7); EOSINOPHILS % (AUTO) 3.8 % (0.0-7.0); HEMATOCRIT 35.9 % (36.7-47.1); HEMOGLOBIN 11.9 g/dL (12.5-16.3); LYMPHOCYTES # (AUTO) 1.1 K/uL (20.0-40.0); LYMPHOCYTES % (AUTO) 14.7 % (20.5-51.5); MEAN CORPUSCULAR HEMOGLOBIN 30.6 uug (23.8-33.4); MEAN CORPUSCULAR HGB CONC 33 g/dL (32.5-36.3); MEAN CORPUSCULAR VOLUME 92.3 fL (73.0-96.2); MONOCYTES # (AUTO) 0.8 K/uL (2.0-10.0); MONOCYTES % (AUTO) 10.7 % (0.0-11.0); NEUTROPHILS # (AUTO) 5.1 K/uL (1.8-8.9); NEUTROPHILS % (AUTO) 70.3 % (38.5-71.5); PLATELET COUNT (AUTO) 177 K/uL (152-348); RED BLOOD CELL COUNT(AUTO) 3.88 MIL/uL (4.06-5.63); WHITE BLOOD COUNT (AUTO) 7.2 K/uL (3.6-10.2)
[2020-01-26 07:07] LABS: CREATININE 1.2 mg/dL (0.6-1.3); MAGNESIUM 2.1 mg/dL (1.8-2.4); PHOSPHOROUS 2.8 mg/dL (2.5-4.9); POTASSIUM 3.8 mmol/L (3.5-5.1)
[2020-01-26] MEDS: PANTOPRAZOLE SODIUM 40 MG TABLET.DR PO SCH (07:12)
[2020-01-26 08:06] LABS: A/G RATIO 1.2 (0.7-1.7); ALBUMIN 3.2 g/dL (2.9-4.4); ALPHA-1-GLOBULIN 0.2 g/dL (0.0-0.4); ALPHA-2-GLOBULIN 0.5 g/dL (0.4-1.0); BETA GLOBULIN 0.8 g/dL (0.7-1.3); GAMMA GLOBULIN 1.1 g/dL (0.4-1.8); GLOBULIN, TOTAL 2.6 g/dL (2.2-3.9); M-SPIKE Not Observed g/dL (Not Observed)
[2020-01-26] MEDS: CHOLECALCIFEROL 1,000 UNIT TABLET PO SCH (08:54)
[2020-01-26] MEDS: METHIMAZOLE 5 MG TABLET PO SCH (08:54)
[2020-01-26] MEDS: ASCORBIC ACID 500 MG TABLET PO SCH (08:54)
[2020-01-26] MEDS: MULTIVITAMINS,THERAPEUTIC TABLET PO SCH (08:54)
[2020-01-26] MEDS: ACIDOPHILUS/BULGARICUS CHEW TAB PO SCH (08:54)
[2020-01-26] MEDS: Z GUARD REMEDY PASTE 57 GM TUBE TOP SCH ×2 (08:55→21:00)
[2020-01-26] MEDS: DILTIAZEM HCL CD 120 MG CAP.SR.24H PO SCH (09:22)
[2020-01-26 11:33] VITALS: BP 130/97
[2020-01-26 16:02] VITALS: BP 119/81
--- NOTE | 2020-01-26 19:26 | NUR ---
Patient continue on droplet/contact isolation for COVID 19. Patient in bed with HOB elevated , awake and verbally responsive .No signs of distress noted and on Oxygen at 2L. No c/o pain or discomfort. Afebrile. Kept clean and comfortable. Sifuentes catheter draining . patient continue on ATB, will continue to monitor.
--- NOTE | 2020-01-26 20:00 | NUR ---
RECEIVED PATIENT AWAKE IN BED. ALERT TO SELF ONLY, GEORGIAN SPEAKING ONLY. CONFUSED AND DISORIENTED. BILATERAL WRIST RESTRAINTS ON PER MD ORDER. PATIENT TRIES TO PULL OUT F/C AND IV. F/C INTACT AND PATENT. ON O2 1L NC SATING 93-94%. ON TELE A-FIB CONTROLLED. VSS. ON AIR MATTRESS. PATIENT ON ISOLATION DROPLET/CONTACT FOR COVID. BED ALARM ON. CALL LIGHT IN REACH. ALL NEEDS ATTENDED. WILL CONTINUE TO MONITOR AND ASSESS.
[2020-01-26 20:35] VITALS: BP 140/91
[2020-01-26] MEDS: LATANOPROST OPHT DROP 2.5 ML BOTTLE EACHEYE SCH (21:30)
[2020-01-27] VITALS: BP 139/89
[2020-01-27] MEDS: PIPERACILLIN SODIUM/TAZOBACTAM 3.375 G in IV DEXTROSE 5% 50 ML IV SCH (00:58)
[2020-01-27 04:00] VITALS: BP 148/90
[2020-01-27] MEDS: PANTOPRAZOLE SODIUM 40 MG TABLET.DR PO SCH (06:19)
--- NOTE | 2020-01-27 06:21 | NUR ---
PATIENT AWAKE IN BED. REPOSITIONED TO SIDE. ON TELE A-FIB, CONTROLLED. VS WNL. ALL NEEDS ATTENDED. WILL CONTINUE TO MONITOR AND ASSESS.
[2020-01-27 07:41] LABS: BILIRUBIN,DIRECT 0.2 mg/dL (0.0-0.2); BILIRUBIN,TOTAL 0.8 mg/dL (0.2-1.0); TOTAL PROTEIN, SERUM 6.5 g/dL (6.4-8.2)
[2020-01-27 08:00] VITALS: BP_SYST 135; BP_SYST 145; BP_DIAS 76; BP_DIAS 82
--- NOTE | 2020-01-27 08:00 | NUR ---
PATIENT REMAINS CONFUSED. ON BILATERAL WRIST RESTRAINTS. PATIENT ATTEMPTS TO PULL OUT LINES.
[2020-01-27] MEDS: ASCORBIC ACID 500 MG TABLET PO SCH (09:30)
[2020-01-27] MEDS: ACIDOPHILUS/BULGARICUS CHEW TAB PO SCH (09:30)
[2020-01-27] MEDS: MULTIVITAMINS,THERAPEUTIC TABLET PO SCH (09:30)
[2020-01-27] MEDS: CHOLECALCIFEROL 1,000 UNIT TABLET PO SCH (09:30)
[2020-01-27] MEDS: METHIMAZOLE 5 MG TABLET PO SCH (09:31)
[2020-01-27] MEDS: DILTIAZEM HCL CD 120 MG CAP.SR.24H PO SCH ×2 (09:51→17:34)
--- NOTE | 2020-01-27 10:00 | NUR ---
dr beltran in the unit to see patient.
[2020-01-27] MEDS: Z GUARD REMEDY PASTE 57 GM TUBE TOP SCH ×2 (10:02→22:07)
[2020-01-27 11:00] VITALS: BP 130/79
--- NOTE | 2020-01-27 12:30 | NUR ---
PATIENT WAS ABLE TO PULL AT HAGAN AND HAS SLIGHT BLOOD TINGED IN THE TUBING. PATIENT REMAINS RESTRAINT.
--- NOTE | 2020-01-27 13:31 | NUR ---
Dr. marie in the unit to see patient. Reported 2 episodes of vtach on the monitor.
[2020-01-27 16:00] VITALS: BP 158/92
--- NOTE | 2020-01-27 19:30 | NUR ---
Received patient awake but confused. Patient shows no signs or symptoms of distress at this time. Patient on isolation for COVID-19. On tele monitor and is controlled a-fib. Will continue to monitor patient.
[2020-01-27 20:10] VITALS: BP 124/74
[2020-01-27] MEDS: LATANOPROST OPHT DROP 2.5 ML BOTTLE EACHEYE SCH (22:08)
[2020-01-28] VITALS: BP 136/79
[2020-01-28] MEDS: PANTOPRAZOLE SODIUM 40 MG TABLET.DR PO SCH (06:06)
[2020-01-28 06:14] VITALS: BP 134/79
--- NOTE | 2020-01-28 06:28 | NUR ---
Patient shows no signs or symptoms of distress at this time. No fever noted during assistant casino shift manager. Vital signs stable. Controlled a-fib on monitor. Bilateral wrist restraints in place. Will endorse patient to assistant casino shift manager in stable condition.
[2020-01-28 07:13] LABS: BASOPHILS # (AUTO) 0.1 K/uL (0.0-8.0); BASOPHILS % (AUTO) 0.6 % (0.0-2.0); EOSINOPHILS # (AUTO) 0.4 K/uL (0.0-0.7); EOSINOPHILS % (AUTO) 3.8 % (0.0-7.0); HEMATOCRIT 35.6 % (36.7-47.1); LYMPHOCYTES # (AUTO) 1.3 K/uL (20.0-40.0); MEAN CORPUSCULAR HEMOGLOBIN 31.1 uug (23.8-33.4); MEAN CORPUSCULAR HGB CONC 34 g/dL (32.5-36.3); MEAN CORPUSCULAR VOLUME 92.2 fL (73.0-96.2); MONOCYTES # (AUTO) 0.9 K/uL (2.0-10.0); MONOCYTES % (AUTO) 9.3 % (0.0-11.0); NEUTROPHILS # (AUTO) 7.1 K/uL (1.8-8.9); NEUTROPHILS % (AUTO) 73.3 % (38.5-71.5); PLATELET COUNT (AUTO) 201 K/uL (152-348); RED BLOOD CELL COUNT(AUTO) 3.86 MIL/uL (4.06-5.63); WHITE BLOOD COUNT (AUTO) 9.7 K/uL (3.6-10.2)
[2020-01-28 07:40] LABS: CREATININE 1.3 mg/dL (0.6-1.3); MAGNESIUM 2.2 mg/dL (1.8-2.4); PHOSPHOROUS 3.2 mg/dL (2.5-4.9); POTASSIUM 3.8 mmol/L (3.5-5.1)
[2020-01-28] MEDS: CHOLECALCIFEROL 1,000 UNIT TABLET PO SCH (09:56)
[2020-01-28] MEDS: ACIDOPHILUS/BULGARICUS CHEW TAB PO SCH (09:56)
[2020-01-28] MEDS: ASCORBIC ACID 500 MG TABLET PO SCH (09:57)
[2020-01-28] MEDS: METHIMAZOLE 5 MG TABLET PO SCH (09:57)
[2020-01-28] MEDS: MULTIVITAMINS,THERAPEUTIC TABLET PO SCH (09:58)
[2020-01-28] MEDS: DILTIAZEM HCL CD 120 MG CAP.SR.24H PO SCH ×2 (10:04→17:32)
[2020-01-28] MEDS: Z GUARD REMEDY PASTE 57 GM TUBE TOP SCH ×2 (10:04→20:45)
--- NOTE | 2020-01-28 10:20 | NUR ---
Received patient resting in bed, awake and alert but confused. No s/s of acute distress noted. Patient has bilateral restraints attempting to pull lines and may. Bed in lowest position, side rails up x3, call light within reach, will continue to monitor.
[2020-01-28] MEDS ORDERED: FUROSEMIDE 20 MG/2 ML VIAL IV ONE (10:45)
[2020-01-28 11:52] VITALS: BP 116/60
[2020-01-28 16:29] VITALS: BP 115/66
--- NOTE | 2020-01-28 20:00 | NUR ---
Received patient awake. Patient shows no signs or symptoms of distress at this time. Vital signs stable. Patient's O2 is 98% on 1L oxygen. No fever noted at this time. Patient is controlled A-fib on monitor. Streaks of blood noted in may tubing. Side rails X2 up. Bed set to lowest position. Call light within reach. Will continue to monitor patient.
[2020-01-28] MEDS: LATANOPROST OPHT DROP 2.5 ML BOTTLE EACHEYE SCH (20:46)
[2020-01-28 20:47] VITALS: BP 109/67
[2020-01-29 00:26] VITALS: BP 111/70
[2020-01-29] MEDS: PANTOPRAZOLE SODIUM 40 MG TABLET.DR PO SCH (06:00)
[2020-01-29 06:05] VITALS: BP 116/87
--- NOTE | 2020-01-29 06:32 | NUR ---
Patient shows no signs or symptoms of distress at this time. Vital signs stable. No fevers noted throughout the shift. Bilateral soft wrist restraints in place. Controlled a-fib on tele monitor. Will endorse patient to table games shift manager in stable condition.
[2020-01-29 06:55] LABS: BASOPHILS % (AUTO) 0.6 % (0.0-2.0); EOSINOPHILS # (AUTO) 0.3 K/uL (0.0-0.7); EOSINOPHILS % (AUTO) 3.9 % (0.0-7.0); HEMATOCRIT 36.6 % (36.7-47.1); HEMOGLOBIN 12.5 g/dL (12.5-16.3); LYMPHOCYTES # (AUTO) 1.3 K/uL (20.0-40.0); LYMPHOCYTES % (AUTO) 15.1 % (20.5-51.5); MEAN CORPUSCULAR HEMOGLOBIN 31.4 uug (23.8-33.4); MEAN CORPUSCULAR HGB CONC 34 g/dL (32.5-36.3); MEAN CORPUSCULAR VOLUME 92.2 fL (73.0-96.2); MONOCYTES # (AUTO) 0.7 K/uL (2.0-10.0); MONOCYTES % (AUTO) 8.4 % (0.0-11.0); NEUTROPHILS # (AUTO) 6.2 K/uL (1.8-8.9); PLATELET COUNT (AUTO) 222 K/uL (152-348); RED BLOOD CELL COUNT(AUTO) 3.97 MIL/uL (4.06-5.63); WHITE BLOOD COUNT (AUTO) 8.6 K/uL (3.6-10.2)
[2020-01-29 07:12] LABS: CREATININE 1.3 mg/dL (0.6-1.3); MAGNESIUM 2.2 mg/dL (1.8-2.4); PHOSPHOROUS 3.5 mg/dL (2.5-4.9); POTASSIUM 3.7 mmol/L (3.5-5.1)
[2020-01-29] MEDS: METHIMAZOLE 5 MG TABLET PO SCH (08:35)
[2020-01-29] MEDS: ASCORBIC ACID 500 MG TABLET PO SCH (08:35)
[2020-01-29] MEDS: CHOLECALCIFEROL 1,000 UNIT TABLET PO SCH (08:35)
[2020-01-29] MEDS: ACIDOPHILUS/BULGARICUS CHEW TAB PO SCH (08:35)
[2020-01-29] MEDS: DILTIAZEM HCL CD 120 MG CAP.SR.24H PO SCH ×2 (08:36→16:48)
[2020-01-29] MEDS: MULTIVITAMINS,THERAPEUTIC TABLET PO SCH (08:36)
[2020-01-29] MEDS: Z GUARD REMEDY PASTE 57 GM TUBE TOP SCH ×2 (08:37→20:36)
[2020-01-29 11:30] VITALS: BP 104/58
[2020-01-29 16:00] VITALS: BP 108/65
--- NOTE | 2020-01-29 18:36 | NUR ---
Afebrile. VSS. No respiratory distress noted or complaints of pain. Oxygen saturation above 92% on room air. Continues on wood room hand, stable, controlled afib. Skin precautions maintained throughout shift. Patient attempting to pull tubes/lines, bilateral soft wrist restraints in place. Renewed order 0800 today. Safety/skin checks in place, no evidence of skin breakdown. Sifuentes catheter in place, adequate output recorded. Covid from 01/27 resulted positive. Will endorse care to oncoming shift.
--- NOTE | 2020-01-29 19:00 | NUR ---
PATIENT ALERT BUT FORGETFUL, NO SOB NO CHEST PAIN, PATIENT TELE MONITOR A FIB CONTROLLED, PATIENT ON WRIST RESTRAINT, CHECK FOR PLACEMENT AND CIRCULATIONS, REMAIN ON DROPLET PRECAUTION,CONT TO MONITOR.
[2020-01-29] MEDS: LATANOPROST OPHT DROP 2.5 ML BOTTLE EACHEYE SCH (20:35)
[2020-01-29 22:01] VITALS: BP 110/68
[2020-01-30 01:37] VITALS: BP 111/68
[2020-01-30 04:26] VITALS: BP 108/65
--- NOTE | 2020-01-30 04:32 | NUR ---
PATIENT ALERT AWAKE WITH CONFUSION, TELE MONITOR A FIB CONTROLLED, CONT ON WRIST RESTRAINT, CHECK FOR PLACEMENT AND CIRCULATIONS, HAGAN CATH PATENT DRAINING WITH YELLOW GIOVANY, KEPT CLEAN AND DRY CONT TO MONITOR.
[2020-01-30] MEDS: PANTOPRAZOLE SODIUM 40 MG TABLET.DR PO SCH (06:27)
[2020-01-30 08:40] VITALS: BP 110/81
[2020-01-30] MEDS: CHOLECALCIFEROL 1,000 UNIT TABLET PO SCH (09:37)
[2020-01-30] MEDS: MULTIVITAMINS,THERAPEUTIC TABLET PO SCH (09:37)
[2020-01-30] MEDS: ASCORBIC ACID 500 MG TABLET PO SCH (09:37)
[2020-01-30] MEDS: ACIDOPHILUS/BULGARICUS CHEW TAB PO SCH (09:37)
[2020-01-30] MEDS: METHIMAZOLE 5 MG TABLET PO SCH (09:37)
[2020-01-30] MEDS: Z GUARD REMEDY PASTE 57 GM TUBE TOP SCH ×2 (10:25→21:35)
[2020-01-30] MEDS: DILTIAZEM HCL CD 120 MG CAP.SR.24H PO SCH ×2 (10:33→21:37)
[2020-01-30 15:08] VITALS: BP 112/71
[2020-01-30] MEDS: LATANOPROST OPHT DROP 2.5 ML BOTTLE EACHEYE SCH (21:37)
[2020-01-30 22:02] VITALS: BP 109/58
[2020-01-31 04:38] VITALS: BP 127/75
--- NOTE | 2020-01-31 06:56 | NUR ---
Patient slept well. No SOB noted. Remains afebrile. On contact and droplet isolation for COVID19. All needs attended. Will endorse accordingly
[2020-01-31] MEDS: ASCORBIC ACID 500 MG TABLET PO SCH (09:00)
[2020-01-31] MEDS: DILTIAZEM HCL CD 120 MG CAP.SR.24H PO SCH ×2 (09:00→21:52)
[2020-01-31] MEDS: PANTOPRAZOLE SODIUM 40 MG TABLET.DR PO SCH (09:00)
[2020-01-31] MEDS: CHOLECALCIFEROL 1,000 UNIT TABLET PO SCH (09:00)
[2020-01-31] MEDS: METHIMAZOLE 5 MG TABLET PO SCH (09:00)
[2020-01-31] MEDS: Z GUARD REMEDY PASTE 57 GM TUBE TOP SCH ×2 (09:00→21:53)
[2020-01-31] MEDS: MULTIVITAMINS,THERAPEUTIC TABLET PO SCH (09:00)
[2020-01-31] MEDS: ACIDOPHILUS/BULGARICUS CHEW TAB PO SCH (09:00)
[2020-01-31 09:28] VITALS: BP 115/77
[2020-01-31 13:23] VITALS: BP 120/75
[2020-01-31 17:09] VITALS: BP 122/70
--- NOTE | 2020-01-31 18:34 | NUR ---
Pt received, awake, confused, AAox1, Czech speaking. Pt denies pain and no SOB noted. BL soft wrist restraints in place, required due to risk for injury in pulling out tubing. Regular circulation, repositioning, and placement checks provided. Sifuentes catheter in place, draining clear, yellow/garth urine. Pt clean and dry on air mattress. PT seen by MD, will begin titrating O2 from 2L NC with target 88% O2 RA. Compliant with routine medication administration. Plan for DC tomorrow. Call light within reach. Bed in locked and lowest position with side rails up. Will continue to monitor and endorse.
[2020-01-31 20:01] VITALS: BP 118/69
[2020-01-31] MEDS: LATANOPROST OPHT DROP 2.5 ML BOTTLE EACHEYE SCH (21:52)
[2020-02-01 04:55] VITALS: BP 107/67
[2020-02-01 08:26] VITALS: BP 110/61
[2020-02-01] MEDS: ACIDOPHILUS/BULGARICUS CHEW TAB PO SCH (08:29)
[2020-02-01] MEDS: MULTIVITAMINS,THERAPEUTIC TABLET PO SCH (08:29)
[2020-02-01] MEDS: METHIMAZOLE 5 MG TABLET PO SCH (08:30)
[2020-02-01] MEDS: PANTOPRAZOLE SODIUM 40 MG TABLET.DR PO SCH (08:30)
[2020-02-01] MEDS: Z GUARD REMEDY PASTE 57 GM TUBE TOP SCH (08:30)
[2020-02-01] MEDS: CHOLECALCIFEROL 1,000 UNIT TABLET PO SCH (08:30)
[2020-02-01] MEDS: ASCORBIC ACID 500 MG TABLET PO SCH (08:30)
[2020-02-01 09:02] VITALS: BP 118/68
[2020-02-01] MEDS: DILTIAZEM HCL CD 120 MG CAP.SR.24H PO SCH (09:24)
[2020-02-01 16:00] VITALS: BP 103/62
--- NOTE | 2020-02-01 18:12 | NUR ---
Pt received, assessed, AAox1, confused, and Australian speaking. No acute distress, pain, or SOB. VSS 96% O2 on RA. MD aware. BL soft wrist restraints in place. Regular circulation, repositioning, and placement checks done. Sifuentes catheter in place and draining clear, yellow/garth urine. Pt seen by MD. Discharge orders received. Report given to Luis Armando RAHMAN at [facility], expected to room 4C isolation for COVID 1 precautions to be maintained. Skin integrity intact. No home meds. Only personal item, ring accounted for. Pt unable to sign due to infection protocol. Copies placed in chart, including lab test results. Report given to web marketing coordinator. Pt safely escorted out of unit on [facility]. Will remove from system shortly.
== END 2020-02-01 17:45 | DRG 871 ==
LOC: ER 17:29 → CCU 19:51 → TELE-TD3 01-21 16:22 → MEDSURG3 01-21 16:41 → TELE3 01-21 18:23 → MEDSURG3 01-30 11:25 → MED 01-30 18:26
PROVIDERS: ADMIT Internal Medicine
DX: A41.89 Other specified sepsis (principal); U07.1 COVID-19; J12.89 Other viral pneumonia; N17.0 Acute kidney failure with tubular necrosis; I50.31 Acute diastolic (congestive) heart failure; D68.69 Other thrombophilia; I48.20 Chronic atrial fibrillation, unspecified; I13.0 Hypertensive heart and chronic kidney disease with heart failure and stage 1 through stage 4 chronic kidney disease, or unspecified chronic kidney disease; G93.40 Encephalopathy, unspecified; I47.2 Ventricular tachycardia; R19.7 Diarrhea, unspecified; F01.50 Vascular dementia, unspecified severity, without behavioral disturbance, psychotic disturbance, mood disturbance, and anxiety; E03.9 Hypothyroidism, unspecified; D69.6 Thrombocytopenia, unspecified; M19.90 Unspecified osteoarthritis, unspecified site; I25.10 Atherosclerotic heart disease of native coronary artery without angina pectoris; N18.9 Chronic kidney disease, unspecified; K59.00 Constipation, unspecified; Z87.01 Personal history of pneumonia (recurrent); Z87.891 Personal history of nicotine dependence; E11.22 Type 2 diabetes mellitus with diabetic chronic kidney disease; F41.9 Anxiety disorder, unspecified; D64.9 Anemia, unspecified; E78.5 Hyperlipidemia, unspecified; Z79.01 Long term (current) use of anticoagulants; R31.9 Hematuria, unspecified
CPT/HCPCS: 36415; 36600; 70030-TC; 71045; 74018; 76770; 83550; 83605; 83615; 83735; 83970; 84100; 84155; 84165; 84443; 85025; 85730; 86140; 87040; 87400; 93005; A4217; A4663; G0378; J0456; J1940; J1956; J2060; J2270; J2543; J3490; J7030; J7040; J7050; J7060

== ENCOUNTER 2020-02-05 09:05 | Inpatient (IN) | payer MEDICARE ==
[~2020-02-05] VITALS: Ht 167.6 cm; Wt 85.3 kg
[~2020-02-05 09:05] MED LIST changes: +ASCO500C16 PO; -BISA10SU11 RC; -CEPH500C2 PO; +GUAI118.5 PO; -LACT1CAP57 PO; +LACT1CAP89 PO; +LATA2.5D2 EACHEYE; -LORA0.5T PO; -MEMA1CAP2 PO; +MEMA1CAP3 PO; +METH5TAB6 PO; +MULT1TAB73 PO; +OMEP40CA13 PO; -PANT40TA2 PO; +PARO10TA86 PO; -PARO20TA7 PO
--- NOTE | 2020-02-05 09:10 | NUR ---
Dr Mccoy at the bedside for MSE.
[2020-02-05] MEDS ORDERED: CEFTRIAXONE 1 G in IV DEXTROSE 5% 50 ML IV ONE (09:15)
[2020-02-05] MEDS ORDERED: CEFTRIAXONE 1 G VIAL ONE (09:31)
[2020-02-05 09:34] LABS: BASOPHILS # (AUTO) 0.1 K/uL (0.0-8.0); BASOPHILS % (AUTO) 1.1 % (0.0-2.0); EOSINOPHILS # (AUTO) 0.3 K/uL (0.0-0.7); EOSINOPHILS % (AUTO) 3.8 % (0.0-7.0); HEMATOCRIT 41.3 % (36.7-47.1); HEMOGLOBIN 14.1 g/dL (12.5-16.3); LYMPHOCYTES # (AUTO) 1.6 K/uL (20.0-40.0); LYMPHOCYTES % (AUTO) 21.6 % (20.5-51.5); MEAN CORPUSCULAR HEMOGLOBIN 31.4 uug (23.8-33.4); MEAN CORPUSCULAR HGB CONC 34 g/dL (32.5-36.3); MEAN CORPUSCULAR VOLUME 91.8 fL (73.0-96.2); MONOCYTES # (AUTO) 0.6 K/uL (2.0-10.0); MONOCYTES % (AUTO) 8.2 % (0.0-11.0); NEUTROPHILS # (AUTO) 4.7 K/uL (1.8-8.9); NEUTROPHILS % (AUTO) 65.3 % (38.5-71.5); PLATELET COUNT (AUTO) 267 K/uL (152-348); WHITE BLOOD COUNT (AUTO) 7.2 K/uL (3.6-10.2)
[2020-02-05 09:37] LABS: *BLOOD, URINE 3+ (NEGATIVE); *CLARITY,URINE SLIGHTLY CLOUDY (CLEAR); *COLOR,URINE DARK YELLOW (YELLOW); *KETONES,URINE NEGATIVE (NEGATIVE); *UROBILINOGEN,URINE 0.2 E.U./dl (NORMAL); LEUKOCYTE ESTERASE ,URINE TRACE (NEGATIVE); NITRITE, URINE NEGATIVE (NEGATIVE); PH,URINE 5.5 (5.0-8.0); UGLUCOSE NEGATIVE (NEGATIVE)
[2020-02-05 09:43] LABS: CREATININE 1.3 mg/dL (0.6-1.3); POTASSIUM 4.3 mmol/L (3.5-5.1)
[2020-02-05] MEDS ORDERED: METH5TAB6 PO (09:50)
[2020-02-05] MEDS ORDERED: APIX5TAB PO (09:50)
[2020-02-05] MEDS ORDERED: PANT40TA4 PO (09:50)
[2020-02-05] MEDS ORDERED: BISA10SU61 RC (09:50)
[2020-02-05] MEDS ORDERED: CHOL100062 (09:50)
[2020-02-05] MEDS ORDERED: CHOL100034 PO (09:50)
[2020-02-05] MEDS ORDERED: ACET-73 PO (09:51)
[2020-02-05 09:55] LABS: BILIRUBIN,DIRECT 0.1 mg/dL (0.0-0.2); BILIRUBIN,TOTAL 0.8 mg/dL (0.2-1.0); TOTAL PROTEIN, SERUM 7.5 g/dL (6.4-8.2)
--- NOTE | 2020-02-05 10:05 | NUR ---
Patient is resting comfortably in bed with eyes closed, NAD noted.
[2020-02-05 10:31] LABS: *BILIRUBIN,URIN 1+ (NEGATIVE)
[2020-02-05 10:33] LABS: RBC,URINE TNTC /HPF (0-3); WBC,URINE 50-80 /HPF (0-3)
[2020-02-05 10:34] LABS: BACTERIA,URINE MODERATE /HPF (NONE SEEN); MUCUS,URINE FEW /LPF (0-FEW); SQUAMOUS EPITHELIAL CELL,UR FEW /HPF (NONE SEEN); URINE AMORPHOUS URATE MODERATE /HPF
[2020-02-05 13:30] VITALS: BP 124/64
--- NOTE | 2020-02-05 13:30 | NUR ---
Admitted a 84yrs old male from ED. Pt. under care of Dr. Pappas. DX: Gross hematuria. Pt. incoherent and unable to state reason for admission, only mumble words. Pt. responsive to tactile stimuli. On RA and tolerating well, in no acute distress. F/C in place with clear garth color urine, placed stat lock to keep F/C in place as pt. has hx of pulling out lines. External F/C with dry blood. Skin intact, noted BLE scattered abrasion and BUE intact ecchymosis. Pt. placed on tele, A.fib/NSR, currently on Eliquis. On droplet/contact/and eye precaution as pt. test x3 + for COVID-19. All pt. needs attended and met promptly. Safety measures in place. Call light and all frequently used items within pt. reach. Will continue to monitor. Attending MD aware of pt. admission to unit.
[2020-02-05] MEDS ORDERED: MAGNESIUM HYDROXIDE 30 ML LIQUID UDC PO PRN (14:15)
[2020-02-05] MEDS ORDERED: FLEET ENEMA 133 ML BOTTLE RC PRN (14:15)
[2020-02-05] MEDS ORDERED: ACETAMINOPHEN 325 MG TABLET PO PRN (14:15)
[2020-02-05] MEDS ORDERED: BISACODYL 10 MG SUPP.RECT RC SCH (14:15)
[2020-02-05] MEDS ORDERED: ONDANSETRON 4 MG/2 ML VIAL IV PRN (14:30)
[2020-02-05] MEDS ORDERED: MORPHINE SULFATE 2 MG/1 ML DISP.SYRIN IV PRN (14:30)
[2020-02-05] MEDS ORDERED: LORAZEPAM 2 MG/1 ML VIAL IV PRN (14:30)
[2020-02-05 15:43] VITALS: BP 121/74
[2020-02-05] MEDS: IV NS 1000 ML 1,000 ML IV PRN (16:42)
--- NOTE | 2020-02-05 18:36 | NUR ---
EOS Note: No acute changes the remainder of this shift. All pt. needs attended and met promptly. Tolerating IV fluids well. Safety measures in place. Call light and all frequently used items within pt. reach. Will endorse to oncoming shift accordingly.
[2020-02-05 20:37] VITALS: BP 139/95
[2020-02-05] MEDS: LATANOPROST OPHT DROP 2.5 ML BOTTLE EACHEYE SCH (21:01)
[2020-02-06 00:08] VITALS: BP 129/95
[2020-02-06 04:12] VITALS: BP 131/83
[2020-02-06 06:35] LABS: BILIRUBIN,TOTAL 0.6 mg/dL (0.2-1.0); CREATININE 1.3 mg/dL (0.6-1.3); MAGNESIUM 2.1 mg/dL (1.8-2.4); PHOSPHOROUS 2.8 mg/dL (2.5-4.9); POTASSIUM 3.9 mmol/L (3.5-5.1)
--- NOTE | 2020-02-06 06:44 | NUR ---
Patient slept well. No SOB noted. Afebrile at this time. Afib on Tele monitor. IV on LFA intact and patent w/ IVF infusing. F/C intact draining clear yellow urine. All needs attended. Will endorse accordingly
[2020-02-06 07:07] LABS: BASOPHILS % (AUTO) 0.6 % (0.0-2.0); EOSINOPHILS # (AUTO) 0.4 K/uL (0.0-0.7); EOSINOPHILS % (AUTO) 4.7 % (0.0-7.0); HEMATOCRIT 41.5 % (36.7-47.1); HEMOGLOBIN 13.9 g/dL (12.5-16.3); LYMPHOCYTES # (AUTO) 1.3 K/uL (20.0-40.0); LYMPHOCYTES % (AUTO) 17.8 % (20.5-51.5); MEAN CORPUSCULAR HEMOGLOBIN 30.9 uug (23.8-33.4); MEAN CORPUSCULAR HGB CONC 34 g/dL (32.5-36.3); MEAN CORPUSCULAR VOLUME 92.1 fL (73.0-96.2); MONOCYTES # (AUTO) 0.5 K/uL (2.0-10.0); MONOCYTES % (AUTO) 6.8 % (0.0-11.0); NEUTROPHILS # (AUTO) 5.3 K/uL (1.8-8.9); NEUTROPHILS % (AUTO) 70.1 % (38.5-71.5); PLATELET COUNT (AUTO) 259 K/uL (152-348); WHITE BLOOD COUNT (AUTO) 7.5 K/uL (3.6-10.2)
--- NOTE | 2020-02-06 08:00 | NUR ---
Received patient in bed, awake, alert and verbally responsive. Grenadian speaking. No signs of distress noted. No SOB. saturating 96% on Room air. Afebrile. No complain of pain or discomfort. On contact and droplet Isolation for Positive covid 19. Proper PPE strictly Observed. Sifuentes catheter draining with yellow Urine. No Hematuria noted. Kept clean and comfortable. Will continue to monitor.
[2020-02-06] MEDS ORDERED: LACTOBACILLUS ACIDOPHILUS E PO SCH (09:00)
[2020-02-06] MEDS ORDERED: Medication Not On Formulary EA (Cholecalciferol (Vitamin D3) (Vitamin D3) 25 MCG) PO SCH (09:00)
[2020-02-06] MEDS ORDERED: Medication Not On Formulary EA (Ascorbic Acid (Vitamin C CAPSULE) 500 MG) PO SCH (09:00)
[2020-02-06] MEDS ORDERED: Medication Not On Formulary EA (Multivitamins (Multivitamin) 1 TAB) PO SCH (09:00)
[2020-02-06] MEDS: CEFTRIAXONE 1 G in IV DEXTROSE 5% 50 ML IV SCH (09:15)
[2020-02-06] MEDS: DILTIAZEM HCL CD 120 MG CAP.SR.24H PO SCH (09:15)
[2020-02-06] MEDS: PANTOPRAZOLE SODIUM 40 MG TABLET.DR PO SCH (09:16)
[2020-02-06] MEDS: CHOLECALCIFEROL 1,000 UNIT TABLET PO SCH (09:16)
[2020-02-06] MEDS: MULTIVITAMINS,THERAPEUTIC TABLET PO SCH (09:16)
[2020-02-06] MEDS: ACIDOPHILUS/BULGARICUS CHEW TAB PO SCH (09:19)
[2020-02-06] MEDS: ASCORBIC ACID 500 MG TABLET PO SCH (09:19)
[2020-02-06] MEDS: METHIMAZOLE 5 MG TABLET PO SCH (09:19)
[2020-02-06 11:00] VITALS: BP 128/86
[2020-02-06] MEDS: PAROXETINE HCL 10 MG TABLET PO SCH (11:20)
[2020-02-06] MEDS: IV NS 1000 ML 1,000 ML IV PRN (11:29)
[2020-02-06] MEDS ORDERED: FLUCONAZOLE 200 MG/NS 100ML IV 100 MG in PREMIXED 1 EACH IV SCH (14:00)
[2020-02-06 16:00] VITALS: BP 134/77
--- NOTE | 2020-02-06 18:32 | NUR ---
Patient in bed, awake and verbally responsive. No signs of distress noted. No SOB. saturating 96% on Room air, Afebrile. No complain of Pain or discomfort. Patient noted with blood clots in the urine. Sifuentes catheter care rendered. kept clean and comfortable. Will endorse to Oncoming Nurse.
[2020-02-06 20:27] VITALS: BP 130/81
[2020-02-06] MEDS: MUPIROCIN 2% OINT 22 GM TUBE NS SCH (21:48)
[2020-02-06] MEDS: LATANOPROST OPHT DROP 2.5 ML BOTTLE EACHEYE SCH (21:52)
[2020-02-07 01:12] VITALS: BP 139/73
[2020-02-07] MEDS: IV NS 1000 ML 1,000 ML IV PRN ×2 (04:21→22:00)
[2020-02-07 05:53] VITALS: BP 123/69
--- NOTE | 2020-02-07 06:24 | NUR ---
Patient slept well. No SOB noted. O2 sat 98% on RA. Afib on Tele monitor. Remains afebrile. F/C intact and patent draining clear yellow urine, no hematuria. All needs attended. Will endorse accordingly
[2020-02-07 08:00] VITALS: BP 124/82
--- NOTE | 2020-02-07 08:10 | NUR ---
Patient in bed, awake and verbally responsive. Congolese Speaking. No signs of distress noted. No SOB saturating 97% on Room Air. No complain of pain or discomfort. Sifuentes catheter draining with Rosemarie color Urine with minimal Hematuria. Remains on contact and droplet Isolation for positive covid 19 . Proper PPE strictly Observed. Kept clean and comfortable. Will continue to monitor.
[2020-02-07] MEDS: ASCORBIC ACID 500 MG TABLET PO SCH (08:28)
[2020-02-07] MEDS: CHOLECALCIFEROL 1,000 UNIT TABLET PO SCH (08:28)
[2020-02-07] MEDS: PAROXETINE HCL 10 MG TABLET PO SCH (08:28)
[2020-02-07] MEDS: MULTIVITAMINS,THERAPEUTIC TABLET PO SCH (08:28)
[2020-02-07] MEDS: ACIDOPHILUS/BULGARICUS CHEW TAB PO SCH (08:29)
[2020-02-07] MEDS: METHIMAZOLE 5 MG TABLET PO SCH (08:29)
[2020-02-07] MEDS: PANTOPRAZOLE SODIUM 40 MG TABLET.DR PO SCH (08:29)
[2020-02-07] MEDS: DILTIAZEM HCL CD 120 MG CAP.SR.24H PO SCH (09:17)
[2020-02-07] MEDS: MUPIROCIN 2% OINT 22 GM TUBE NS SCH ×2 (09:17→21:08)
[2020-02-07] MEDS: CEFTRIAXONE 1 G in IV DEXTROSE 5% 50 ML IV SCH (09:40)
--- NOTE | 2020-02-07 14:30 | NUR ---
Dr. Long with New Order to Change Diflucan 100 IV to Oral, Pharmacy is aware.
[2020-02-07] MEDS: FLUCONAZOLE 100 MG TABLET PO SCH (15:33)
[2020-02-07 16:20] VITALS: BP 133/79
--- NOTE | 2020-02-07 18:35 | NUR ---
EOS report: Patient is awake, alert and verbally responsive. No signs of distress. NO SOB. Saturating 96% on Room Air. No complain of Pain or discomfort. Afebrile. Discontinued Sifuentes catheter,, No bladder distention noted. Covid test done and sent to labs. All due medications given as ordered. Kept clean and comfortable. Will endorse to Oncoming Nurse.
[2020-02-07 20:00] VITALS: BP 104/66
--- NOTE | 2020-02-07 20:00 | NUR ---
PATIENT ALERT BUT FORGETFUL, NO SOB NO CHEST PAIN. PATIENT HAS NO COMPLAIN OF PAIN AT THIS TIME. PATIENT VOIDING FREELY, NO HEMATURIA NO ODOR NOTED. PATIENT TELE MONITOR A FIB CONTROLLED. CONT TO MONITOR.
[2020-02-07] MEDS: LATANOPROST OPHT DROP 2.5 ML BOTTLE EACHEYE SCH (21:08)
[2020-02-08] VITALS: BP 115/65
--- NOTE | 2020-02-08 05:12 | NUR ---
PATIENT AWAKE, NO SOB NO CHEST PAIN, DENIES PAIN AT THIS TIME. PATIENT VOIDING WELL, NO HEMATURIA NOTED, NO ODOR NOTED. PATIENT REMAIN ON DROPLET PRECAUTIONS, CONT TO OBSERVE TO WEAR PPE. PATIENT HAS NO COUGHING NO FEVER NOTED, CONT TO MONITOR.
[2020-02-08 05:51] VITALS: BP 132/81
[2020-02-08 07:16] LABS: BASOPHILS % (AUTO) 0.5 % (0.0-2.0); EOSINOPHILS # (AUTO) 0.2 K/uL (0.0-0.7); EOSINOPHILS % (AUTO) 4.1 % (0.0-7.0); HEMATOCRIT 39.3 % (36.7-47.1); HEMOGLOBIN 13.1 g/dL (12.5-16.3); LYMPHOCYTES # (AUTO) 1.5 K/uL (20.0-40.0); LYMPHOCYTES % (AUTO) 24.7 % (20.5-51.5); MEAN CORPUSCULAR HEMOGLOBIN 30.7 uug (23.8-33.4); MEAN CORPUSCULAR HGB CONC 33 g/dL (32.5-36.3); MEAN CORPUSCULAR VOLUME 92.3 fL (73.0-96.2); MONOCYTES # (AUTO) 0.4 K/uL (2.0-10.0); MONOCYTES % (AUTO) 7.2 % (0.0-11.0); NEUTROPHILS # (AUTO) 3.8 K/uL (1.8-8.9); NEUTROPHILS % (AUTO) 63.5 % (38.5-71.5); PLATELET COUNT (AUTO) 245 K/uL (152-348); RED BLOOD CELL COUNT(AUTO) 4.25 MIL/uL (4.06-5.63)
[2020-02-08 07:30] LABS: CREATININE 1.2 mg/dL (0.6-1.3); PHOSPHOROUS 2.5 mg/dL (2.5-4.9); POTASSIUM 3.9 mmol/L (3.5-5.1)
[2020-02-08] MEDS: MUPIROCIN 2% OINT 22 GM TUBE NS SCH ×2 (09:00→21:39)
[2020-02-08] MEDS: CHOLECALCIFEROL 1,000 UNIT TABLET PO SCH (10:11)
[2020-02-08] MEDS: MULTIVITAMINS,THERAPEUTIC TABLET PO SCH (10:11)
[2020-02-08] MEDS: ASCORBIC ACID 500 MG TABLET PO SCH (10:12)
[2020-02-08] MEDS: FLUCONAZOLE 100 MG TABLET PO SCH (10:12)
[2020-02-08] MEDS: PAROXETINE HCL 10 MG TABLET PO SCH (10:12)
[2020-02-08] MEDS: METHIMAZOLE 5 MG TABLET PO SCH (10:12)
[2020-02-08] MEDS: PANTOPRAZOLE SODIUM 40 MG TABLET.DR PO SCH (10:12)
[2020-02-08] MEDS: ACIDOPHILUS/BULGARICUS CHEW TAB PO SCH (10:14)
[2020-02-08] MEDS: CEFTRIAXONE 1 G in IV DEXTROSE 5% 50 ML IV SCH (10:14)
[2020-02-08] MEDS: DILTIAZEM HCL CD 120 MG CAP.SR.24H PO SCH (10:22)
[2020-02-08 13:21] VITALS: BP 142/82
[2020-02-08] MEDS ORDERED: LORAZEPAM 2 MG/1 ML VIAL IV PRN (16:15)
--- NOTE | 2020-02-08 19:20 | NUR ---
Pt covid positive. Specialty precautions maintained. IV on R FA intact and patent. No SOB noted. Patient voiding well; no hematuria noted. Absorbent pad encouraged, urinal within reach. In no acute distress. Will endorse care accordingly.
[2020-02-08 19:45] VITALS: BP 159/91
[2020-02-08] MEDS: LATANOPROST OPHT DROP 2.5 ML BOTTLE EACHEYE SCH (21:38)
[2020-02-09 04:59] VITALS: BP 132/87
[2020-02-09] MEDS: ACIDOPHILUS/BULGARICUS CHEW TAB PO SCH (10:01)
[2020-02-09] MEDS: PANTOPRAZOLE SODIUM 40 MG TABLET.DR PO SCH (10:01)
[2020-02-09] MEDS: METHIMAZOLE 5 MG TABLET PO SCH (10:01)
[2020-02-09] MEDS: CHOLECALCIFEROL 1,000 UNIT TABLET PO SCH (10:01)
[2020-02-09] MEDS: MULTIVITAMINS,THERAPEUTIC TABLET PO SCH (10:01)
[2020-02-09] MEDS: PAROXETINE HCL 10 MG TABLET PO SCH (10:01)
[2020-02-09] MEDS: ASCORBIC ACID 500 MG TABLET PO SCH (10:01)
[2020-02-09] MEDS: FLUCONAZOLE 100 MG TABLET PO SCH (10:01)
[2020-02-09] MEDS: CEFTRIAXONE 1 G in IV DEXTROSE 5% 50 ML IV SCH (10:05)
[2020-02-09 10:09] VITALS: BP 151/79
[2020-02-09] MEDS: DILTIAZEM HCL CD 120 MG CAP.SR.24H PO SCH (10:09)
[2020-02-09] MEDS: MUPIROCIN 2% OINT 22 GM TUBE NS SCH (10:17)
--- NOTE | 2020-02-09 11:54 | NUR ---
Patient noted sitting in up in bed, no complaints of pain or signs of distress noted, on isolation for MRSA of the nares and Covid positive, call light in reach, bed locked and in lowest position, all needs met
[2020-02-09] MEDS ORDERED: FLUC100T PO (12:02)
[2020-02-09] MEDS ORDERED: QUET25TA PO (12:02)
[2020-02-09] MEDS ORDERED: TAMS-3 PO (12:03)
--- NOTE | 2020-02-09 14:25 | NUR ---
Patient report given to Larry post acute (Pa[facility]) RN for discharge, no complaints of pain, no signs of distress noted, MD Long made aware, discharge paperwork given, exit care provided, vitals are stable, patient leaving building via [facility] ambulance service, all needs met
== END 2020-02-09 14:30 | DRG 871 ==
LOC: ER 09:05 → TELE 12:58 → MED 02-08 16:51
PROVIDERS: ADMIT Internal Medicine; ATTEND Internal Medicine
DX: A41.89 Other specified sepsis (principal); U07.1 COVID-19; N17.0 Acute kidney failure with tubular necrosis; G92 Toxic encephalopathy; J12.89 Other viral pneumonia; B37.49 Other urogenital candidiasis; D68.69 Other thrombophilia; E87.2 Acidosis; I13.0 Hypertensive heart and chronic kidney disease with heart failure and stage 1 through stage 4 chronic kidney disease, or unspecified chronic kidney disease; I50.32 Chronic diastolic (congestive) heart failure; I48.20 Chronic atrial fibrillation, unspecified; T83.83XA Hemorrhage due to genitourinary prosthetic devices, implants and grafts, initial encounter; Y92.129 Unspecified place in nursing home as the place of occurrence of the external cause; R31.0 Gross hematuria; Z79.01 Long term (current) use of anticoagulants; F01.50 Vascular dementia, unspecified severity, without behavioral disturbance, psychotic disturbance, mood disturbance, and anxiety; E78.5 Hyperlipidemia, unspecified; E66.9 Obesity, unspecified; I25.10 Atherosclerotic heart disease of native coronary artery without angina pectoris; R62.7 Adult failure to thrive; M19.90 Unspecified osteoarthritis, unspecified site; E11.22 Type 2 diabetes mellitus with diabetic chronic kidney disease; G89.29 Other chronic pain; N18.9 Chronic kidney disease, unspecified; I35.1 Nonrheumatic aortic (valve) insufficiency; Y84.8 Other medical procedures as the cause of abnormal reaction of the patient, or of later complication, without mention of misadventure at the time of the procedure; M17.0 Bilateral primary osteoarthritis of knee; N13.9 Obstructive and reflux uropathy, unspecified; Z87.891 Personal history of nicotine dependence; Z68.30 Body mass index [BMI] 30.0-30.9, adult
CPT/HCPCS: 36415; 70030-TC; 71045; 83605; 83735; 84100; 85025; 85730; 86850; 86900; 86901; 87040; 87086; 93005; 93307; A4663; G0378; J0696; J1450; J2060; J3490; J7030; J7060